=== PATIENT | male | born 1955 | race Caucasian/White ===

== ENCOUNTER 2018-03-08 09:30 | Emergency (ER) | payer OTHER ==
[~2018-03-08] VITALS: Ht 182.9 cm; Wt 95.3 kg
[2018-03-08] MEDS ORDERED: CLOPIDOGREL75 MG PO (09:42)
[2018-03-08] MEDS ORDERED: AMLODIPINE-ATO1 EAC5 PO (09:42)
[2018-03-08] MEDS ORDERED: ASPIR 8181 MG PO (09:42)
[2018-03-08] MEDS ORDERED: SODIUM CHLORIDE 0.9% 250ML 250 ML IV STA (09:50)
[2018-03-08] MEDS ORDERED: ONDANSETRON HCL INJ 2 MG/ML VIAL IV STA ×2 (09:50→14:50)
[2018-03-08] MEDS ORDERED: MORPHINE SULFATE INJ 4 MG/ML INJ IV STA (09:50)
[2018-03-08] MEDS ORDERED: MORPHINE SULFATE 2 MG/ML SYR ONE ×2 (10:09→16:15)
[2018-03-08 10:35] LABS: BASOPHILS % 0.3 % (0.0-1.0); EOSINOPHILS # (AUTO) 0.1 (0.0-0.4); EOSINOPHILS % 0.9 % (0.0-6.0); HEMATOCRIT 40.1 % (38.2-49.6); HEMOGLOBIN 14.3 g/dL (14.0-18.0); LYMPHOCYTES # (AUTO) 0.6 (1.0-3.2); MEAN CORPUSCULAR HEMOGLOBIN 34.2 pg (28-32); MEAN CORPUSCULAR HGB CONC 35.7 g/dL (31-35); MEAN CORPUSCULAR VOLUME 95.9 fL (81-99); MONOCYTES # (AUTO) 0.6 (0.2-0.8); MONOCYTES % 8.2 % (4.4-11.3); NEUTROPHILS # (AUTO) 5.8 (2.1-6.9); NEUTROPHILS % 82.2 % (38.7-80.0); PLATELET COUNT 264 x10e3/uL (140-360); RED BLOOD COUNT 4.18 x10e6/uL (4.3-5.7); RED CELL DISTRIBUTION WIDTH 11.9 % (11.7-14.4)
[2018-03-08 10:40] LABS: INR 1.09; PROTHROMBIN TIME 13.3 seconds (11.9-14.5)
[2018-03-08 10:50] LABS: ALANINE AMINOTRANSFERASE 17 IU/L (0-55); ALBUMIN/GLOBULIN RATIO 1.1 (0.8-2.0); ALKALINE PHOSPHATASE 79 IU/L (40-150); ANION GAP 13.7 mmol/L (8-16); BLOOD UREA NITROGEN 5 mg/dL (7-26); BUN/CREATININE RATIO 7 (6-25); CALCIUM 9.2 mg/dL (8.4-10.2); CARBON DIOXIDE 23 mmol/L (22-29); CHLORIDE 103 mmol/L (98-107); CREATININE, SERUM 0.76 mg/dL (0.72-1.25); EST GLOMERULAR FILTRATION RATE > 60 ML/MIN (60-); GLUCOSE 125 mg/dL (74-118); POTASSIUM 3.7 mmol/L (3.5-5.1); SODIUM 136 mmol/L (136-145)
--- NOTE | 2018-03-08 12:10 | Diagnostic Imaging Report ---
TECHNIQUE: Computed tomography imaging of the PELVIS was performed WITHOUT injected contrast using standard departmental protocols. HISTORY: Pain, trauma COMPARISON: None. FINDINGS: No displaced fracture to the pelvis or proximal femurs. Partially visualized compression fracture of the L3 lumbar vertebrae. Adjacent stranding. No lytic or blastic lesion. Degenerative arthrosis of the hips. Soft tissues of the pelvis are unremarkable. No visualized hematoma or fluid collection. Partially visualized infrarenal 5 cm aortic aneurysm. Additional atherosclerotic calcifications. Scattered colonic diverticulosis. IMPRESSION: No acute fracture of the pelvis or proximal femurs. Partially visualized compression fracture of L3. This may be acute to subacute given the adjacent soft tissue stranding. 5 cm infrarenal abdominal aortic aneurysm. Recommend dedicated imaging for further evaluation and surgical follow-up if not previously performed (no prior imaging available on PACS). Signed by: Dr. Jim Carlson M.D. on 03/08/2018 12:06 PM
--- NOTE | 2018-03-08 14:47 | Diagnostic Imaging Report ---
History: r/o compression fx Comparison studies: None Technique:: Axial CT images were obtained of the lumbar spine without contrast. Coronal and sagittal images reconstructed from the axial data. Intravenous contrast: None Findings: Alignment: Normal lordosis. No scoliosis . Soft tissues: Increase in the size of the left iliopsoas muscle and a focal retroperitoneal hematoma posterior to the iliopsoas presumed to relate to the compression fracture at L3 described below. Partially visualized abdominal aortic aneurysm measures at least 5 cm transverse dimension. Incidental partially visualized masses in the adrenal glands which by Hounsfield unit seen to be consistent with adenomas. Cannot further evaluate. Paraspinal muscles: Fatty infiltrated from L5 to S1. Vertebrae: An age-indeterminate, perhaps acute, compression fracture at L3 resulting in approximately 50% loss of the midportion of the vertebral body. The fracture extends into the posterior wall there are no retropulsed fragment displaced into the spinal canal. Degenerative changes: Disc spaces: Moderately degenerated at L5-S1. Otherwise relatively intact. Facets: Mildly degenerated on the right at L4 L3 4, moderate bilaterally at L4-5 and at L5-S1. Foramina: Moderately stenotic at L5-S1 due to endplate osteophytes. Otherwise, no significant stenosis. Spinal canal: Moderate stenosis at L3-4 and at L4-5 due to disc bulges. Otherwise patent. IMPRESSION: 1. Age indeterminate but probably acute compression fracture at L3. No retropulsed fragment displaced into the spinal canal. Focal hematoma in the adjacent left medial femoral and in the adjacent retroperitoneum 2. Degenerative foraminal and spinal canal stenosis as described. Additional findings: Partially visualized abdominal aortic aneurysm measuring at least 5 cm transverse as also described on concurrent CT pelvis. Preliminary findings discussed with BLACK PARSONS MD at 03/08/2018 2:[address] Morelos. Signed by: Dr. Yury Berry M.D. on 03/08/2018 6:15 PM
[2018-03-08] MEDS ORDERED: ONDANSETRON HCL INJ 2 MG/ML VIAL ONE (14:58)
--- NOTE | 2018-03-08 16:29 | Diagnostic Imaging Report ---
CT angiogram of the abdomen and pelvis CPT code number: 61610,05531 History: Aortic aneurysm. Recent trauma Technique: Multidetector helical CT angiography was carried out from the lung bases to the proximal femurs following intravenous contrast administration. Thin section image collimation was utilized and 3-D images were postprocessed on a separate workstation. Parenchymal organ imaging will be limited by arterial phase of contrast administration. Comparison: Unenhanced CT pelvis 0958 hours, CT lumbar spine [address] scan thorax: Mediastinum: No pleural effusion or pneumothorax. The lungs are diffusely hyperinflated without mass or infiltrate. The heart is normal in size. Mild thickening of the distal esophagus is suggestive of hiatal hernia.. CT scan of the abdomen: Liver: No contusion or laceration. No enhancing mass Spleen: No contusion or laceration. Normal size. Pancreas: Normal in attenuation without mass or ductal dilatation. Adrenal glands: Right: Nodule in the apex measures 12 mm. Nodule in the lateral limb measures 12 x 15 mm. Left: Diffuse thickening without discrete nodule. Gallbladder: Present. No wall thickening, gallstone or ductal dilatation.. Retroperitoneum: Retroperitoneal inflammation anterior to the left psoas muscle. This travels along the course of the left common iliac artery and into the left lower quadrant. No loculated fluid collections. Kidneys: Symmetric enhancement. No mass or hydronephrosis.. Bowel and mesentery: The stomach is normal. Small bowel is normal in diameter with normal wall thickness. Diverticulosis coli of the sigmoid colon with mural thickening suggestive of previous bouts of diverticulitis. No active inflammation. No free fluid or fluid collection. The bladder is intact. There are calcifications in a nonenlarged prostate gland. Bones: Compression fracture of L3 of approximately 60%. The posterior and inferior endplate protrudes slightly into the spinal canal. The posterior elements are intact. No other compression deformities. There are degenerative changes of the lower thoracic and lower lumbar spine. No diastases of the pubic symphysis or sacroiliac joints. The hips are intact with mild degenerative changes. Soft tissues: Fat-containing supraumbilical hernia has an aperture of [address] angiography: 1. Descending thoracic aorta:Measures 3.1 x 3.0 cm 2. Aorta at the diaphragm:Measures 2.9 x 3.0 cm 3. Aorta at the celiac artery:Measures 2.6 x 2.8 cm 4. Aorta at the cranial most renal artery:Measures 3.2 x 3.3 cm 5. Aorta at the caudal-most renal artery:Measures 3.2 x 3.3 cm 6. Infrarenal aorta: Maximum diameter is 5.0 x 4.8 cm. 7. Bifurcation:2.7 x 2.7 cm 8. Iliac arteries: Right common iliac artery measures 1.5 cm. Left common iliac artery measures 1.7 cm. Internal and external iliac arteries are ectatic. Common femoral arteries are normal in diameter. 9. Morphology:Fusiform infrarenal aortic aneurysm begins 3 cm inferior to the origin of the left renal artery and measures 9.4 cm in length. This terminates at the aortic bifurcation. There is focal dissection in the proximal infrarenal aorta 11 mm inferior to the origin of the right renal artery and extending approximately 1.3 cm (series 3, image 81). Both lumens are patent. Neither artery is supplied by the false lumen. There is a focal dissection at the origin of the right common iliac artery measuring 8 mm with patency of the lumens. There is diffuse atherosclerotic plaque. 10. Visceral arteries: Celiac artery origin is narrowed to 7 mm with post-stenotic dilatation to 11 mm. No dissection. Conventional branching. SMA origin is widely patent with mild burden of calcification at the origin. Renal arteries: Single arteries supply each kidney. Atherosclerotic plaque at the origin of the left renal artery without significant stenosis. JOANIE: Patent. IMPRESSION: 1. Small left retroperitoneal hemorrhage is most likely secondary to an acute compression fracture of L3 of approximately 60%. 2. Infrarenal aortic aneurysm as described above. 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 No evidence of acute aortic injury. 3. Narrowing of the celiac artery origin. No evidence of visceral ischemia. 4. Small hiatal hernia. Diverticulosis coli. 5. No evidence of solid or hollow organ injury. 6. Right adrenal nodule in left adrenal gland thickening. Recommend CT or MRI dedicated to the adrenal glands to document the presence of adenomata. Signed by: Dr. Gamal Esqueda MD on 03/08/2018 4:25 PM
[2018-03-08] MEDS ORDERED: MORPHINE SULFATE 2 MG/ML SYR IV PRN (16:30)
[2018-03-08] MEDS ORDERED: SODIUM CHLORIDE 0.9% 100 ML ONE (20:14)
[2018-03-08] MEDS ORDERED: IOPAMIDOL 370 MG/ML 200 ML INFUS..BTL INJ ONE (20:14)
== END 2018-03-08 18:45 | disposition other institution (70) ==
LOC: ER 09:30
DX: M54.5 Low back pain (principal); S32.030A Wedge compression fracture of third lumbar vertebra, initial encounter for closed fracture; W01.0XXA Fall on same level from slipping, tripping and stumbling without subsequent striking against object, initial encounter; I71.4 Abdominal aortic aneurysm, without rupture
CPT/HCPCS: 36415; 72131; 72192; 74174; 80053; 85025; 85610; 85730; 99284; J2270; J2405; J7050 ×2; Q9967